=== PATIENT | male | born 2005 | race Caucasian/White ===

== ENCOUNTER 2025-09-29 12:36 | Emergency (ER) | payer BC, SELFPAY ==
--- NOTE | ~2025-09-29 | US_ITS ---
US abdomen limited Indication: Elevated bilirubin Comparison: None Technique: Elder-scale and color Doppler images were obtained. Findings: LIVER: Unremarkable, liver contours intact, no lesions. Normal echogenicity. . The liver measures 15.3 cm. GALLBLADDER/BILIARY: Unremarkable.No cholelithiais, wall thickening or pericholecystic fluid. No biliary dilatation. CBD 2.6 mm. [place] sign negative. PANCREAS: Pancreas limited by bowel gas. Right Kidney: Visualized right kidney limited but grossly unremarkable. Impression: The visualized liver appears grossly unremarkable Reviewed, dictated and finalized at location [facility] Impression: The visualized liver appears grossly unremarkable
[2025-09-29 12:52] VITALS: BP 122/75; PULSE 87; RESP 16; TEMP 37.1; O2SAT 100
--- NOTE | 2025-09-29 14:15 | ED.NAVMDI ---
HPI - Nausea/Vomiting/Diarrhea General Chief complaint: Nausea/Vomiting/Diarrhea <Monserrat Perez PA-C - Last Filed: 10/08/25 14:44> Stated complaint: fever, vomiting <Monserrat Perez PA-C - Last Filed: 10/08/25 14:44> Time Seen by Provider: 09/29/25 14:15 <Monserrat Perez PA-C - Last Filed: 10/08/25 14:44> Focused HPI: This is a 20 year old male that presents to the ER for fever. Reports associated nausea, vomiting, diarrhea. Reports he feels like his eyes are yellow. No current abdominal pain. Denies cough, congestion, sore throat. GENERAL: Well-appearing, well-nourished, and in no acute distress. HEAD: Normocephalic, atraumatic. CHEST: Clear to auscultation. ?No respiratory distress. HEART: Regular rate and rhythm.? NEURO: ?Alert and oriented x3. Patient screened in triage and initial orders placed.? ?Additional care and disposition to be based upon?diagnostic testing and treatment. <Monserrat Perez PA-C - Last Filed: 10/08/25 14:44> History of Present Illness HPI Narrative: Agree with the above HPI <Eben Fraser MD - Last Filed: 09/29/25 22:24> Related Data Allergies/Adverse reactions: Allergies Allergy/AdvReac Type Severity Reaction Status Date / Time No Known Allergies Allergy Verified 09/29/25 12:56 <Monserrat Perez PA-C - Last Filed: 10/08/25 14:44> Review of Systems Review of Systems: All systems reviewed & are unremarkable except as noted in HPI and below <Eben Fraser MD - Last Filed: 09/29/25 22:24> Exam Narrative: APPEARANCE: Well appearing, no pain, no distress, well-nourished. HEAD: normocephalic, atraumatic. EYES: Mild scleral jaundice NOSE: Normal no drainage EARS:TMS clear with good light reflex. THROAT: Pharynx clear, no exudate. NECK: Supple. No adenopathy, no masses. RESPIRATORY: Airway patent, respirations nonlabored. Clear to auscultation bilaterally, no rales, rhonchi, wheezing. CARDIOVASCULAR: Regular rate and rhythm without murmurs rubs or gallops. ABDOMINAL: Soft, nontender, nondistended, normal bowel sounds MUSCULOSKELETAL: Moves all extremities. Strength/ROM intact, No edema, No calf tenderness. NEURO: Alert. Cranial nerves II through XII intact. Good gait. Good coordination SKIN: Warm, dry. Normal Color <Eben Fraser MD - Last Filed: 09/29/25 22:24> Course Vital Signs Vital signs: Vital Signs Temperature 98.8 F 09/29/25 12:52 Pulse Rate 87 09/29/25 12:52 Respiratory Rate 16 09/29/25 12:52 Blood Pressure 122/75 09/29/25 12:52 Pulse Oximetry 100 09/29/25 12:52 Oxygen Delivery Room Air 09/29/25 12:52 Temperature 98.8 F 09/29/25 12:52 Pulse Rate 58 L 09/29/25 18:15 Respiratory Rate 16 09/29/25 18:15 Blood Pressure 118/70 09/29/25 18:15 Pulse Oximetry 100 09/29/25 18:15 Oxygen Delivery Room Air 09/29/25 12:52 <Monserrat Perez PA-C - Last Filed: 10/08/25 14:44> Vital Signs Temperature 98.8 F 09/29/25 12:52 Pulse Rate 87 09/29/25 12:52 Respiratory Rate 16 09/29/25 12:52 Blood Pressure 122/75 09/29/25 12:52 Pulse Oximetry 100 09/29/25 12:52 Oxygen Delivery Room Air 09/29/25 12:52 Temperature 98.8 F 09/29/25 12:52 Pulse Rate 58 L 09/29/25 18:15 Respiratory Rate 16 09/29/25 18:15 Blood Pressure 118/70 09/29/25 18:15 Pulse Oximetry 100 09/29/25 18:15 Oxygen Delivery Room Air 09/29/25 12:52 <Eben Fraser MD - Last Filed: 09/29/25 22:24> MDM - Nausea/Vomiting/Diarrhea MDM Narrative Medical decision making narrative: 20-year-old male presents emergency department for evaluation for scleral jaundice. Patient states this is improving since yesterday. Patient is also reporting that his nausea and vomiting has improved as well. Patient is no distress at time of evaluation. Patient is afebrile no leukocytosis hemoglobin of 14. Patient has mild elevation of T bili 2.1 but normal AST ALT alk-phos and lipase. UA was negative for infection. Patient was negative for hep C hep B and hep a along with influenza a B RSV and for COVID. No acute abnormalities on the ultrasound. Suspect viral etiology for the nausea vomiting and elevated T bili. Patient family were updated the results of the workup encouraged close follow-up with primary care physician for repeat lab testing. Patient was provided Zofran for nausea control. All questions concerns were addressed. Patient family are comfortable with the plan for discharge and close follow-up. <Eben Fraser MD - Last Filed: 09/29/25 22:24> Differential Diagnosis Differential diagnosis: Likely traveler's diarrhea, food poisoning, gastroenteritis, drug-induced nausea and vomiting and dehydration <Eben Fraser MD - Last Filed: 09/29/25 22:24> Lab Data Attestation: I reviewed the patient's lab results. <Eben Fraser MD - Last Filed: 09/29/25 22:24> Result diagrams: 09/29/25 15:06 09/29/25 15:06 <Monserrat Perez PA-C - Last Filed: 10/08/25 14:44> Labs: Lab Results 09/29/25 09/29/25 Range/Units 15:06 16:15 WBC 3.5 L (4.5-10.0) K/mm3 RBC 4.87 (4.6-6.20) M/mm3 Hgb 14.0 (14.0-18.0) g/dL Hct 41.1 L (42.0-52.0) % MCV 84.4 (80-100) fl MCH 28.7 (26-34) pg MCHC 34.1 (32-36) g/dl RDW 12.3 (11.5-14.5) % Plt Count 205 (150-375) k/mm3 MPV 10.5 H (7.4-10.4) fl Immature Gran % (Auto) 0.3 (0-0.5) % Neut % (Auto) 54.5 (45.5-73.1) % Lymph % (Auto) 28.1 (18.3-44.2) % [place] % (Auto) 15.1 H (2.6-8.5) % Eos % (Auto) 1.4 (0-4.4) % Baso % (Auto) 0.6 (0.2-1.2) % Lymph # (Auto) 0.99 (0.9-3.2) K/mm3 [place] # (Auto) 0.5 (0.1-0.6) K/mm3 Eos # (Auto) 0.1 (0-0.3) K/mm3 Baso # (Auto) 0.0 (0.0-0.1) K/mm3 Abs Immat Gran (auto) 0.01 (0.00-0.031) K/mm3 Absolute Neuts (auto) 1.9 (1.3-6.7) K/mm3 Absolute Nucleated RBC 0.000 (0.0-0.012) K/mm3 Nucleated RBC % 0.0 (0.0-0.2) % PT 13.9 (11.1-14.7) Seconds INR 1.1 APTT 26.9 (22.3-36.8) Seconds Sodium 136 L (137-145) mmol/L Potassium 4.5 (3.4-5.0) mmol/L Chloride 100 (98-107) mmol/L Carbon Dioxide 30 (22-30) mmol/L Anion Gap 6 (4-12) mmol/L BUN 17 (9-20) mg/dL Creatinine 0.99 (0.7-1.3) mg/dL Estim Creat Clear Calc 97 ml/min Estimated GFR > 60 (59 - ) Glucose 108 (65-110) mg/dL Calcium 9.3 (8.4-10.2) mg/dL Total Bilirubin 2.1 H (0.2-1.3) mg/dL AST 29 (17-59) U/L ALT 18 (6-50) U/L Alkaline Phosphatase 55 (38-126) U/L Total Protein 8.6 H (6.3-8.2) g/dL Albumin 4.8 (3.5-5.1) g/dL Lipase 31 (23-300) U/L Urine Color Yellow (Yellow) Urine Appearance Clear (Clear) Urine pH 7.5 (5.0-9.0) Ur Specific [place] 1.022 (1.001-1.035) Urine Protein Negative (Negative) mg/dL Urine Glucose (UA) Negative (Negative) mg/dL Urine Ketones Negative (Negative) mg/dL Ur Blood (Man) Negative (Negative) Urine Nitrate Negative (Negative) Urine Bilirubin Negative (Negative) Urine Urobilinogen 1.0 (<2.0) mg/dL Leukocyte Esterase Rfl Negative (Negative) KELSI/UL Hepatitis A IgM Ab Negative (Negative) Hep Bs Antigen Negative (Negative) Hep B Core IgM Ab Negative (Negative) Hepatitis C Ab Screen Negative (Negative) Influenza A (RT-PCR) Negative (Negative) Influenza B (RT-PCR) Negative (Negative) RSV (RT-PCR) Negative (Negative) SARS-CoV-2 RNA (RT-PCR) Negative (Negative) <Monserrat Perez PA-C - Last Filed: 10/08/25 14:44> Lab Results 09/29/25 09/29/25 Range/Units 15:06 16:15 WBC 3.5 L (4.5-10.0) K/mm3 RBC 4.87 (4.6-6.20) M/mm3 Hgb 14.0 (14.0-18.0) g/dL Hct 41.1 L (42.0-52.0) % MCV 84.4 (80-100) fl MCH 28.7 (26-34) pg MCHC 34.1 (32-36) g/dl RDW 12.3 (11.5-14.5) % Plt Count 205 (150-375) k/mm3 MPV 10.5 H (7.4-10.4) fl Immature Gran % (Auto) 0.3 (0-0.5) % Neut % (Auto) 54.5 (45.5-73.1) % Lymph % (Auto) 28.1 (18.3-44.2) % [place] % (Auto) 15.1 H (2.6-8.5) % Eos % (Auto) 1.4 (0-4.4) % Baso % (Auto) 0.6 (0.2-1.2) % Lymph # (Auto) 0.99 (0.9-3.2) K/mm3 [place] # (Auto) 0.5 (0.1-0.6) K/mm3 Eos # (Auto) 0.1 (0-0.3) K/mm3 Baso # (Auto) 0.0 (0.0-0.1) K/mm3 Abs Immat Gran (auto) 0.01 (0.00-0.031) K/mm3 Absolute Neuts (auto) 1.9 (1.3-6.7) K/mm3 Absolute Nucleated RBC 0.000 (0.0-0.012) K/mm3 Nucleated RBC % 0.0 (0.0-0.2) % PT 13.9 (11.1-14.7) Seconds INR 1.1 APTT 26.9 (22.3-36.8) Seconds Sodium 136 L (137-145) mmol/L Potassium 4.5 (3.4-5.0) mmol/L Chloride 100 (98-107) mmol/L Carbon Dioxide 30 (22-30) mmol/L Anion Gap 6 (4-12) mmol/L BUN 17 (9-20) mg/dL Creatinine 0.99 (0.7-1.3) mg/dL Estim Creat Clear Calc 97 ml/min Estimated GFR > 60 (59 - ) Glucose 108 (65-110) mg/dL Calcium 9.3 (8.4-10.2) mg/dL Total Bilirubin 2.1 H (0.2-1.3) mg/dL AST 29 (17-59) U/L ALT 18 (6-50) U/L Alkaline Phosphatase 55 (38-126) U/L Total Protein 8.6 H (6.3-8.2) g/dL Albumin 4.8 (3.5-5.1) g/dL Lipase 31 (23-300) U/L Urine Color Yellow (Yellow) Urine Appearance Clear (Clear) Urine pH 7.5 (5.0-9.0) Ur Specific [place] 1.022 (1.001-1.035) Urine Protein Negative (Negative) mg/dL Urine Glucose (UA) Negative (Negative) mg/dL Urine Ketones Negative (Negative) mg/dL Ur Blood (Man) Negative (Negative) Urine Nitrate Negative (Negative) Urine Bilirubin Negative (Negative) Urine Urobilinogen 1.0 (<2.0) mg/dL Leukocyte Esterase Rfl Negative (Negative) KELSI/UL Hepatitis A IgM Ab Negative (Negative) Hep Bs Antigen Negative (Negative) Hep B Core IgM Ab Negative (Negative) Hepatitis C Ab Screen Negative (Negative) Influenza A (RT-PCR) Negative (Negative) Influenza B (RT-PCR) Negative (Negative) RSV (RT-PCR) Negative (Negative) SARS-CoV-2 RNA (RT-PCR) Negative (Negative) <Eben Fraser MD - Last Filed: 09/29/25 22:24> Imaging Data Radiologist's impression: Impressions Abdomen Ultrasound 09/29/25 17:02 Impression: The visualized liver appears grossly unremarkable <Eben Fraser MD - Last Filed: 09/29/25 22:24> Discharge Plan Discharge Clinical Impression: Jaundice Nausea & vomiting Qualifiers: Vomiting type: unspecified Qualified Code(s): R11.2 - Nausea with vomiting, unspecified <Monserrat Perez PA-C - Last Filed: 10/08/25 14:44> Patient Disposition: Home <Monserrat Perez PA-C - Last Filed: 10/08/25 14:44> Condition: Stable <Monserrat Perez PA-C - Last Filed: 10/08/25 14:44> Instructions: Antibiotic Form, Clear Liquid Diet (ED), Acute Nausea and Vomiting (ED) <Monserrat Perez PA-C - Last Filed: 10/08/25 14:44> Additional Instructions: zofran and as needed for nausea control. Clear liquid diet for the next 1-3 days. Advance to a bland diet as tolerated. Have close follow-up with your primary care physician for additional outpatient testing <Monserrat Perez PA-C - Last Filed: 10/08/25 14:44> Patient Language: Beninese <HAL Velasco Last Filed: 10/08/25 14:44> Prescriptions: New ondansetron 4 mg tablet,disintegrating 4 mg PO Q8H PRN (Reason: nausea and vomiting) Qty: 14 0RF <Monserrat Perez PA-C - Last Filed: 10/08/25 14:44> Follow-up/Referrals: PHYSICIAN,GRADUATE RECRUITER [Primary Care Provider, Internal Medicine] <Monserrat Perez PA-C - Last Filed: 10/08/25 14:44> Stand Alone Forms: Work/School Release IP <Monserrat Perez PA-C - Last Filed: 10/08/25 14:44>
[2025-09-29 15:16] LABS: Hematocrit 41.1 % (42.0-52.0); Hemoglobin 14.0 g/dL (14.0-18.0); Immature Granulocyte Percent A 0.3 % (0-0.5); Lymphocytes Absolute Auto 0.99 K/mm3 (0.9-3.2); Mean Corpuscular HGB Conc 34.1 g/dl (32-36); Mean Corpuscular Hemoglobin 28.7 pg (26-34); Mean Corpuscular Volume 84.4 fl (80-100); Nucleated Red Blood Cells Absolute Auto 0.000 K/mm3 (0.0-0.012); Nucleated Red Blood Cells Perc 0.0 % (0.0-0.2); Platelet Count Result 205 k/mm3 (150-375); Red Blood Count 4.87 M/mm3 (4.6-6.20); White Blood Count 3.5 K/mm3 (4.5-10.0)
[2025-09-29 15:18] LABS: Add Urine Microscopic? NO; Appearance Urine Clear (Clear); Glucose Urine UA Negative (Negative); Leukocyte Esterase Ur Negative LEU/UL (Negative); Nitrate Urine Negative (Negative); Specific Grav Ur 1.022 (1.001-1.035)
[2025-09-29 15:26] LABS: Alanine Aminotransferase 18 U/L (6-50); Albumin Level 4.8 g/dL (3.5-5.1); Alkaline Phosphatase 55 U/L (38-126); Anion Gap 6 mmol/L (4-12); Aspartate Amino Transferase 29 U/L (17-59); Bilirubin,Total 2.1 mg/dL (0.2-1.3); Blood Urea Nitrogen 17 mg/dL (9-20); Calcium 9.3 mg/dL (8.4-10.2); Carbon Dioxide 30 mmol/L (22-30); Chloride 100 mmol/L (98-107); Estimated CRCL calculation 97 ml/min; Estimated Glomerular Filt Rate > 60; Glucose 108 mg/dL (65-110); Lipase 31 U/L (23-300); Potassium 4.5 mmol/L (3.4-5.0); Sodium 136 mmol/L (137-145); Total Protein 8.6 g/dL (6.3-8.2)
[2025-09-29 15:28] LABS: INR 1.1; Prothrombin Time 13.9 Seconds (11.1-14.7)
[2025-09-29 15:29] LABS: Partial Thromboplastin Time 26.9 Seconds (22.3-36.8)
--- OUTSIDE RECORDS SUMMARY | 2025-09-29 15:44 | XMS_ITS | Encounter Summary ---
Author Organization [facility] Address [address] [place] [address] Care Team Providers Care Bonbon Dipper Name Role Phone Christy Bowers Primary Care Provider [phone] Encounter Details Date Type Department Care Team (Late st Contact Info) Description 06/25/2019 Lab Requisition [facility] [address] [facility] [place] [id number] Taylor Schaeffer DO [address] [facility] [address] [place] [address] Social History Tobacco Use Types Packs/Day Years Used Date Smoking Tobacco: Never Smokeless Tobacco: Never Alcohol Use Standard Drinks/Week Comments No 0 (1 standard drink = 0.6 oz pur e alcohol) Sex and Gender Information Value Date Recorded Sex Assigned at Not on file 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 Gender Identity Not on file Sexual Orientation Not on file documented as of this encounter Plan of Treatment Not on file documented as of this encounter Procedures Procedure Name Priority Date/Time Associated Diagnosis Comments DERMATOPATHOLOGY Routine 06/24/2019 12:0 0 AM CDT documented in this encounter Results * DERMATOPATHOLOGY (06/24/2019 12:00 AM CDT) Case Report Dermatopathology Report Case: [id number] Authorizing Provider: Taylor Schaeffer DO Collected: 06/24/2019 12:00 AM Ordering Location: [facility] Received: 06/25/2019 07:00 AM Pathologist: Hailey Zavala MD Specimens: A) - Skin, left cheek B) - Skin, left abdomen C) - Skin, right shoulder 12:54 PM CDT DERMATOPATHOLOGY LABORATORY Final Diagnosis Specimen A. SKIN, left cheek: COMPOUND MELANOCYTIC NEVUS (D22.39) Specimen B. SKIN, left abdomen: COMPOUND MELANOCYTIC NEVUS, IRRITATED (D22.5) Specimen C. SKIN, right shoulder: COMPOUND MELANOCYTIC NEVUS, IRRITATED (D22.61) 12:54 PM CDT DERMATOPATHOLOGY LABORATORY at 1254 CDT Clinical History A-C: Nevus R/O atypia. Fam hx MM, pt concerned that changing and irritated. 12:54 PM CDT DERMATOPATHOLOGY LABORATORY Gross Description Specimen A: Received is one formalin filled container labeled with the patient's name and designated left cheek. The specimen consists of a shave measuring [id number]. Jar 0. Specimen B: Received is one formalin filled container labeled with the patient's name and designated left abdomen. The specimen consists of a shave (2 pieces) measuring [id number] & [id number]. Jar 0. Specimen C: Received is one formalin filled container labeled with the patient's name and designated right shoulder. The specimen consists of a shave measuring [id number]. Jar 0. 12:54 PM CDT DERMATOPATHOLOGY LABORATORY Microscopic Description Specimen A. SKIN, left cheek: There are nests of melanocytes at the dermal-epidermal junction and within the dermis. Specimen B. SKIN, left abdomen: There is melanin pigment in the stratum corneum. There are nests of melanocytes at the dermal-epidermal junction and within the dermis. Specimen C. SKIN, right shoulder: There is melanin pigment in the stratum corneum. There are nests of melanocytes at the dermal-epidermal junction and within the dermis. 12:54 PM CDT DERMATOPATHOLOGY LABORATORY Disclaimer An external and internal positive and negative controls are appropriate for the histochemical, immunohistochemical and immunofluorescence stain(s) in this case (if any), except where stated explicitly. The performance characteristics of the stain(s) cited in this report were developed and its performance characteristic determined by the Dermatopathology Laboratory at [facility], directed by Dr. Nidhi Ballesteros. These tests need not be, and therefore are not, approved by the [place] Food and Drug Administration. The tests are used for clinical purposes. Billing Codes Specimen Charges Stain Charges 94973 [id number] 1 1 1 9 12:54 PM CDT DERMATOPATHOLOGY LABORATORY Embedded Images 9 12:54 PM CDT DERMATOPATHOLOGY LABORATORY Pathology/Cytology TISSUE SPECIMEN FROM SKIN / Unknown 06/24/2019 06/25/2019 7:00 AM CDT Miscellaneous samples (specimen) TISSUE SPECIMEN FROM SKIN / Unknown 06/24/2019 06/25/2019 7:00 AM CDT Miscellaneous samples (specimen) TISSUE SPECIMEN FROM SKIN / Unknown 06/24/2019 06/25/2019 7:00 AM CDT us Taylor Schaeffer DO LAB - PATHOLOGY/CYTOLOGY ORDERABLES Final Result DERMATOPATHOLOGY LABORATORY [facility] - Department of Dermatology [address] [place] [address] [address] [phone] documented in this encounter Visit Diagnoses Not on filedocumented in this encounter Care Teams Bonbon Dipper Relationship Specialty Start Date End Date Christy Bowers PA PCP - General Physician Laser Beam Cutter 06/16/18 documented as of this encounter
--- OUTSIDE RECORDS SUMMARY | 2025-09-29 15:44 | XMS_ITS | Data Portability ---
Author Organization [place] - [facility], [facility] Address [address] [place] [address] Assessment No assessment recorded. Plan of Treatment Reminders Order Date Submit Date Provider Last Modified By Organization Details Last Modified Time Details Appointments None record ed. Lab None record ed. Referral None record ed. Procedures None record ed. Surgeries None record ed. Imaging None record ed. Medication Orders None record ed. Patient TargetsNo targets recorded. Patient InstructionsNo instructions recorded. Reason for Referral None Reported. Results Created Date Observation Date Name Description Value Unit Range Abnormal Flag Note LastModifiedBy Organization Detail LastModifiedTime 10/08/20 19 10/08/2019 rapid flu (A+B) influenza A negati ve negati ve normal Not Available In-House Results For Internal Use Only, Do Not Delete/merge, [id number] 10/08/2019 11:29:10 10/08/20 19 10/08/2019 rapid flu (A+B) influenza B negati ve negati ve normal Not Available In-House Results For Internal Use Only, Do Not Delete/merge, [id number] 10/08/2019 11:29:10 10/08/20 19 10/08/2019 rapid flu (A+B) control accept able accept able normal Not Available In-House Results For Internal Use Only, Do Not Delete/merge, [id number] 10/08/2019 11:29:10 10/08/20 19 10/08/2019 rapid strep group A, throa t strep A negati ve negati ve normal Not Available In-House Results For Internal Use Only, Do Not Delete/merge, [id number] 10/08/2019 11:24:29 10/16/20 22 10/16/2022 rapid flu (A+B) influenza A negati ve negati ve Not Available In-House Results For Internal Use Only, Do Not Delete/merge, [id number] 10/16/2022 11:15:41 10/16/20 22 10/16/2022 rapid flu (A+B) influenza B negati ve negati ve Not Available In-House Results For Internal Use Only, Do Not Delete/merge, [id number] 10/16/2022 11:15:41 10/16/20 22 10/16/2022 rapid flu (A+B) control accept able Not Available In-House Results For Internal Use Only, Do Not Delete/merge, [id number] 10/16/2022 11:15:41 10/16/20 22 10/16/2022 rapid strep group A, throa t strep A negati ve negati ve Not Available In-House Results For Internal Use Only, Do Not Delete/merge, [id number] 10/16/2022 11:01:24 10/16/20 22 10/16/2022 SARS CoV 2 RNA (COVI D-19) , QL, 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 Problems Name Problem SNOMED Code Status Onset Date Resolution Date Notes Provider Name and Address Organization Details Recorded Time Acute bronchitis 93308279 Active Not Available [facility] 3 15:21:24 Acute sinusitis 23313196 Active Not Available [facility] 3 15:21:24 Pain of joint of hand 117065362 Active Not Available [facility] 3 15:21:24 Abdominal pain 38214065 Active Not Available [facility] 3 15:21:24 Pneumonia 451885676 Active Not Available [facility] 3 15:21:24 Headache 26702189 Active Not Available [facility] 3 15:21:24 Polyuria 83965176 Active Not Available [facility] 3 15:21:24 Acute pharyngitis 751321137 Active Not Available [facility] 3 15:21:24 Fever 365305197 Active Not Available [facility] 3 15:21:24 Streptococcal sore throat 22335054 Active Not Available [facility] 3 15:21:25 Gastritis 2017282 Active Not Available [facility] 3 15:21:25 Cough 66315983 Active Not Available [facility] 3 15:21:25 Otitis media 80743081 Active Not Available [facility] 3 15:21:25 Rhinitis 72771855 Active Not Available [facility] 3 15:21:25 Conjunctiviti s 5186359 Active Not Available [facility] 3 15:21:25 Acute maxillary sinusitis 16568066 Active 2021 Not Available [facility] 3 22:08:05 Sore throat 614713167 Active 2021 Not Available [facility] 3 22:08:05 Problem Notes None recorded. Procedures Surgical History Date Name Laterality Status Provider Name and Address Organization Details Recorded Time 04/17/20 05 circumcision completed Not Available [facility] 023 22:09:12 tonsilectomy/mihaela noids completed Not Available [facility] 11/24/2022 22:09:12 Imaging Results None recorded. Procedure Notes None recorded. Medical Equipment None Reported. Allergies Allergen ID Allergen Name Allergen Category Reaction Reaction Severity Criticality Documentation Date Start Date Code Code System Note Provider Name and Address Organization Details Recorded Time 653409 lactose food,medi cation Not available Not available Not available 11/24/2022 6211 RxNorm Not Available [facility] 3 15:23:48 Medications Name Sig Start Date Stop Date Status Note LastModified by Organization Details LastModified Time albuterol sulfate 2.5 mg/3 mL (0.083 %) solution for nebulizatio n Inhale 1.5 mL by nebulizat ion route. 02/18 completed Not Available Not Available Not Available amoxicillin 600 mg-potassiu m clavulanate 42.9 mg/5 mL oral suspension Take 10 mL twice a day by oral route after meals for 10 days. active Not Available Not Available No t Available albuterol sulfate 1.25 mg/3 mL solution for nebulizatio n Inhale 3 mL 4 times a day by inhalatio n route as needed. active Not Available Not Available No t Available ondansetron HCl 4 mg tablet TAKE 1 TABLET BY MOUTH EVERY DAY NEEDED active Not Available Not Available No t Available amoxicillin 875 mg tablet Take 1 tablet twice a day by oral route for 10 days. active Take with food Not Available Not Available Not Available tobramycin 0.3 % eye drops apply 1-2 drops to the affected eye 2-3 x daily x 7 days active Not Available Not Available No t Available ranitidine 150 mg tablet Take 1 tablet twice a day by oral route for 30 days. active Not Available Not Available No t Available omeprazole 20 mg capsule,del ayed release Take 1 capsule every day by oral route at dinner. 06/14 completed Not Available Not Available Not Available amoxicillin 400 mg/5 mL oral suspension Take 10 mL twice a day by oral route with meals for 10 days. active Not Available Not Available No t Available azithromyci n 200 mg/5 mL oral suspension active Not Available Not Available N ot Available methylpredn isolone 4 mg tablets in a dose pack Use as directed on package instructi ons active Not Available Not Available No t Available ondansetron 4 mg disintegrat ing tablet Take 1 tablet 3 times a day by oral route as needed for 5 days. active Not Available Not Available No t Available cefdinir 300 mg capsule Take 1 capsule twice a day by oral route for 10 days. active take with food Not Available Not Available Not Available fluticasone propionate 50 mcg/actuati on nasal spray,suspe nsion active Not Available Not Available Not Available amoxicillin 875 mg-potassiu m clavulanate 125 mg tablet Take 1 tablet every 12 hours by oral route with meals for 10 days. active Not Available Not Available No t Available azithromyci n 500 mg tablet Take 1 tablet every day by oral route for 5 days. active Not Available Not Available No t Available cefdinir 250 mg/5 mL oral suspension active Not Available Not Available N ot Available multivitami n takes daily 02/28 completed Not Available Not Available Not Available Tamiflu 30 mg capsule active Not Available Not Available N ot Available Vitals Date Recorded Oxygen saturation Oxygen saturation in Arterial blood by Pulse oximetry Pain severity - 0-10 verbal numeric rating [Score] - Reported Heart rate Body temperature Body weight Systolic And Diastolic Provider Name and Address Organization Details Last Updated DateTime 0 97 % 97 % 0 78 /min 98.1 [degF] 36017.4 5 g 110/68 mm[Hg] Not Available [facility] 3 22:06:57 Date Recorded Body mass index (BMI) Body height Oxygen saturation Oxygen saturation in Arterial blood by Pulse oximetry Pain severity - 0-10 verbal numeric rating [Score] - Reported Heart rate Respiratory rate Body temperature Body weight Systolic And Diastolic Provider Name and Address Organization Details Last Updated DateTime 1 18.7 kg/m2 182.88 cm 98 % 98 % 0 63 /min 16 /min 98 [degF] 27581.7 5 g 106/64 mm[Hg] Not Available [facility] 3 22:06:57 Date Recorded Body mass index (BMI) Body height Oxygen saturation Oxygen saturation in Arterial blood by Pulse oximetry Pain severity - 0-10 verbal numeric rating [Score] - Reported Heart rate Body temperature Body weight Systolic And Diastolic Provider Name and Address Organization Details Last Updated DateTime 2 20.5 kg/m2 185.42 cm 100 % 100 % 0 88 /min 98.2 [degF] 95746.2 2 g 110/76 mm[Hg] Not Available [facility] 3 22:06:57 Date Recorded Body mass index (BMI) Body height Oxygen saturation Oxygen saturation in Arterial blood by Pulse oximetry Heart rate Respiratory rate Body temperature Body weight Systolic And Diastolic Provider Name and Address Organization Details Last Updated DateTime 9 18.4 kg/m2 175.26 cm 95 % 95 % 92 /min 16 /min 98.4 [degF] 23022.3 3 g 108/64 mm[Hg] Not Available [facility] 3 22:06:56 Date Recorded Body mass index (BMI) Body height Oxygen saturation Oxygen saturation in Arterial blood by Pulse oximetry Pain severity - 0-10 verbal numeric rating [Score] - Reported Heart rate Respiratory rate Body temperature Body weight Systolic And Diastolic Provider Name and Address Organization Details Last Updated DateTime 2 21.2 kg/m2 185.42 cm 100 % 100 % 6 86 /min 18 /min 97.8 [degF] 90116.3 7 g 110/62 mm[Hg] Not Available [facility] 3 22:06:57 Social History Question Answer Notes LastModified by Organizat ion Details LastModified Time Tobacco Smoking Status Never Smoker Not Available [facility] 11/24/2022 22:05:18 What Is Your Level Of Caffeine Consumption? Occasional [id number] Information not available 11/24/2022 What Type Of Chassis Engineer Do You Use? None [id number] Information not available 11/24/2022 In The 14 Days Before Symptom Onset, Have You Had Close Contact With A Laboratory-confirm ed COVID-19 While That Case Was Ill? No [id number] Information not available 11/24/2022 In The 14 Days Before Symptom Onset, Have You Had Close Contact With A Person Who Is Under Investigation For COVID-19 While That Person Was Ill? No [id number] Information not available 11/24/2022 What Type Of Diet Are You Following? REGULAR [id number] Information not available 11/24/2022 Are There Any Guns Present In Your Home? No [id number] Information not available 11/24/2022 What Is Your Home Situation? Both Parents [id number] Information not available 11/24/2022 Do You Use Insect Repellent Routinely? Yes [id number] Information not available 11/24/2022 Do You Have A Plan To Hurt Yourself Or Others? No [id number] Information not available 11/24/2022 Do You Feel Hopeless Or Helpless? No [id number].[id number] Information not available 11/24/2022 Are You Having Any Thoughts Of Suicide Now? No [id number].[id number] Information not available 11/24/2022 What Was The Date Of Your Most Recent Tobacco Screening? 10/16/2022 [id number] Information not available 11/24/2022 What Is Your Parents' Marital Status? [id number].[id number] [id number] Information not available 11/24/2022 Do You Use Your Seat Belt Or Car Seat Routinely? Yes [id number] Information not available 11/24/2022 Do You Have Any Siblings? 1 Sister MIGRATION.[id number] 1311 Information not available 11/24/2022 Do You Have Smoke And Carbon Monoxide Detectors In Your Home? Yes [id number] Information not available 11/24/2022 Are You Passively Exposed To Smoke? No [id number].[id number] 2504 Information not available 11/24/2022 How Much Tobacco Do You Smoke? No [id number].[id number] Information not available 11/24/2022 Do You Use Sunscreen Routinely? Yes [id number].[id number] 1500 Information not available 11/24/2022 Has Tobacco Cessation Counseling Been Provided? No MIGRATION.[id number] 0740 Information not available 11/24/2022 Sex: Male Functional Status Question Answer Note LastModified by Organizat ion Details LastModified Time Do you use any illicit or recreational drugs? No [id number] Information not available 11/24/2022 Mental Status None recorded. Family History Relationship Description Onset Age of this Age Resolved Age Notes LastModified by Organization Details LastModified Time Unspecified Relation Hypertensive disorder [id number] Not available 11/24/2022 22:04:44 Unspecified Relation Lazy eye [id number] Not available 11/24/2022 22:04:44 Mother Malignant neoplasm of breast [id number] Not available 11/24/2022 22:04:44 Notes:CAD, Melanoma Medical History Condition Response BOWEL PROBLEMS Y Immunizations Vaccine Type Date Status Note Provider Nam e and Address Organization Details Recorded Time MMR 0 completed Not Available [facility] 11/24/2022 15:23:26 IPV 0 completed Not Available [facility] 11/24/2022 15:23:26 DTaP 0 completed Not Available [facility] 11/24/2022 15:23:26 varicella 0 completed Not Available [facility] 11/24/2022 15:23:26 Hep A, ped/adol, 2 dose 0 completed Not Available [facility] 11/24/2022 15:23:26 Hep A, ped/adol, 2 dose 7 completed Not Available [facility] 11/24/2022 15:23:26 pneumococcal conjugate PCV 7 6 completed Not Available [facility] 11/24/2022 15:23:27 DTaP 6 completed Not Available [facility] 11/24/2022 15:23:27 varicella 6 completed Not Available [facility] 11/24/2022 15:23:27 MMR 6 completed Not Available [facility] 11/24/2022 15:23:27 Hep B, adolescent or pediatric 6 completed Not Available [facility] 11/24/2022 15:23:27 IPV 6 completed Not Available [facility] 11/24/2022 15:23:27 DTaP 6 completed Not Available [facility] 11/24/2022 15:23:27 pneumococcal conjugate PCV 7 6 completed Not Available [facility] 11/24/2022 15:23:27 pneumococcal conjugate PCV 7 5 completed Not Available [facility] 11/24/2022 15:23:27 DTaP 5 completed Not Available [facility] 11/24/2022 15:23:27 IPV 5 completed Not Available [facility] 11/24/2022 15:23:27 Hep B, adolescent or pediatric 5 completed Not Available [facility] 11/24/2022 15:23:28 DTaP 5 completed Not Available [facility] 11/24/2022 15:23:28 Hep B, adolescent or pediatric 5 completed Not Available [facility] 11/24/2022 15:23:28 pneumococcal conjugate PCV 7 5 completed Not Available [facility] 11/24/2022 15:23:28 IPV 5 completed Not Available [facility] 11/24/2022 15:23:28 Hep B, adolescent or pediatric 5 completed Not Available [facility] 11/24/2022 15:23:28 Tdap 6 completed Not Available [facility] 11/24/2022 15:23:28 Meningococcal MCV4O 6 completed Not Available [facility] 11/24/2022 15:23:28 Meningococcal MCV4O 6 completed Not Available [facility] 11/24/2022 22:09:01 Tdap 6 completed Not Available [facility] 11/24/2022 22:09:02 varicella 0 completed Not Available [facility] 11/24/2022 22:09:02 IPV 0 completed [facility] 11/24/2022 22:09:02 MMR 0 completed Not Available [facility] 11/24/2022 22:09:02 Hep A, ped/adol, 2 dose 0 completed Not Available [facility] 11/24/2022 22:09:02 DTaP 0 completed Not Available [facility] 11/24/2022 22:09:02 Hep A, ped/adol, 2 dose 7 completed Not Available [facility] 11/24/2022 22:09:02 pneumococcal conjugate PCV 7 6 completed Not Available [facility] 11/24/2022 22:09:02 DTaP 6 completed Not Available [facility] 11/24/2022 22:09:02 varicella 6 completed Not Available [facility] 11/24/2022 22:09:02 MMR 6 completed Not Available [facility] 11/24/2022 22:09:02 Hep B, adolescent or pediatric 6 completed Not Available [facility] 11/24/2022 22:09:03 IPV 6 completed Not Available [facility] 11/24/2022 22:09:03 pneumococcal conjugate PCV 7 6 completed Not Available [facility] 11/24/2022 22:09:03 DTaP 6 completed Not Available [facility] 11/24/2022 22:09:03 IPV 5 completed Not Available [facility] 11/24/2022 22:09:03 pneumococcal conjugate PCV 7 5 completed Not Available [facility] 11/24/2022 22:09:03 Hep B, adolescent or pediatric 5 completed Not Available [facility] 11/24/2022 22:09:03 DTaP 5 completed Not Available [facility] 11/24/2022 22:09:03 IPV 5 completed Not Available [facility] 11/24/2022 22:09:03 pneumococcal conjugate PCV 7 5 completed Not Available [facility] 11/24/2022 22:09:03 Hep B, adolescent or pediatric 5 completed Not Available [facility] 11/24/2022 22:09:03 DTaP 5 completed Not Available [facility] 11/24/2022 22:09:03 Hep B, adolescent or pediatric 5 completed Not Available [facility] 11/24/2022 22:09:04 Meningococcal MCV4O 2 completed Not Available [facility] 11/24/2022 22:09:04 Past Encounters Encounter ID Performer Location Encounter Start Date Encounter Closed Date Diagnosis/Indication Diagnosis SNOMED-CT Code Diagnosis ICD10 Code Diagnosis IMO Codes Diagnosis Note [id number] HELEN Ortega DIR_[address] [address] 06/14/2019 00:00:00 06/14/2019 13:38:28 [id number] Urbano Barry NP [address] [address] 10/08/2019 00:00:00 10/08/2019 16:06:59 [id number] Urbano Barry NP [address] [address] 01/20/2020 00:00:00 01/23/2020 14:57:17 [id number] HELEN Alvarez DIR[address] [address] 02/28/2021 00:00:00 02/28/2021 14:05:44 [id number] [facility] [address] 07/02/2022 00:00:00 07/02/2022 13:20:03 [id number] HELEN Ortega DIR[address] [address] 10/16/2022 00:00:00 10/16/2022 11:49:45 Health Concerns Section Related Observation LastModified by Organization Detai ls LastModified Time None Recorded Concern Status LastModified by Organization Details LastModified Time None Recorded Advance Directives Directive None Recorded Payers Insurance Date Sequence Insurance Name Policy Number Policy Dent Covered Member ID Dent Member ID Guarantor Name 11/24/2022 1 [place] [id number] Jesse Gorman [id number] Jesse Gorman
--- OUTSIDE RECORDS SUMMARY | 2025-09-29 15:44 | XMS_ITS | Clinical Summary ---
Author Organization [facility] Address [address] [place] [id number] Care Team Providers Care Certified Medical Coder Name Role Phone Johan Mayen DO Primary Care Provider Social History Tobacco Use Types Packs/Day Years Used Date Smoking Tobacco: Never Assessed Sex and Gender Information Value Date Recorded Sex Assigned at Not on file Legal Sex Male 6:52 PM CDT Gender Identity Not on file Sexual Orientation Not on file Plan of Treatment Health Maintenance Due Date Last Done Comments Annual Physical 2008 HPV Vaccines (1 - Male 3-dos e series) 2020 Meningococcal B Vaccine (1 o f 2 - Standard) 2021 Hepatitis C 2023 DTaP, Tdap and Td Vaccines ( 1 - Tdap) 2024 Hepatitis B Vaccines (1 of 3 - 19+ 3-dose series) 2024 COVID-19 Vaccine (1 - 2024-2 6 season) 2025 Influenza Adult (#1) 2025 Hepatitis A Vaccines Aged Out No long er eligible based on patient's age to complete this topic Meningococcal Vaccine Aged Out No phu doug eligible based on patient's age to complete this topic Pneumococcal Vaccine: Pediat rics (0 to 5 Years) and At-Risk Patients (6 to 49 Years) Aged Out No longer eligible b ased on patient's age to complete this topic RSV Immunizations Under 20 Months Aged Out No longer eligible based on patient's age to complete this topic Care Teams Certified Medical Coder Relationship Specialty Start Date End Date Johan Mayen DO PCP - General 08/24/10
--- OUTSIDE RECORDS SUMMARY | 2025-09-29 15:44 | XMS_ITS | Clinical Summary ---
Author Organization [facility] Address [address] [place] [address] Care Team Providers Care Video Recorder Mechanic Name Role Phone Christy Bowers Primary Care Provider [phone] Source Comments [facility],non-owned Affiliates and Associated Physician Practices is amultiple site organization consisting of ambulatory clinics and hospital sitesin [place], [place], [place] and [place]. This disclosure is being madepursuant to the Care Everywhere program and may not contain all information available regarding this patient. Last updated 18.[facility] Allergies Active Allergy Reactions Criticality Noted Date Comments Lactose GI Discomfort 06/16/2018 Medications * Be aware that medications may not be up to date on this document. Alwaysverify current medications with the patient. multivitamin daily (THERAGRAN) tablet Take 1 Tab by mouth daily with food Active ibuprofen (MOTRIN) 200 MG tablet Take 400 mg by mouth every 6 hours as needed for Pain Active omeprazole (PRILOSEC) 20 MG capsule Take 1 capsule by mouth daily before dinner 30 capsule 2 06/16/2018 Active Active Problems Problem Noted Date Diagnosed Date Epigastric abdominal pain 06/16/2018 Non-intractable vomiting with nausea 06/15/2018 Fracture of proximal phalanx of toe of left foot 06/03/2017 Family History Medical History Relation Name Comments Other Maternal Grandmother GERD Allergies - Food Neg Hx Celiac Disease Neg Hx Crohn's Disease Neg Hx Ulcerative Colitis Neg Hx Relation Name Status Comments Maternal Grandmother Social History Tobacco Use Types Packs/Day Years Used Date Smoking Tobacco: Never Smokeless Tobacco: Never Alcohol Use Standard Drinks/Week Comments No 0 (1 standard drink = 0.6 oz pur e alcohol) Sex and Gender Information Value Date Recorded Sex Assigned at Not on file Legal Sex 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 Gender Identity Not on file Sexual Orientation Not on file Last Filed Vital Signs Vital Sign Reading Time Taken Comments Blood Pressure 100/64 06/16/2018 12:51 PM CDT Pulse 98 06/10/2018 12:58 PM CDT per pcp Temperature 37.2 C (98.9 F) 06/10/2018 12:58 PM CDT per pcp Respiratory Rate - - Oxygen Saturation 98% 06/10/2018 12:58 PM CDT per pcp Inhaled Oxygen Concentration - - Weight 48.1 kg (106 lb 0.7 oz) 06/16/2018 12:51 PM CDT Height 161.4 cm (5' 3.54) 06/16/2018 12:51 PM C DT Body Mass Index 18.46 06/16/2018 12:51 PM CDT Plan of Treatment Health Maintenance Due Date Last Done Comments HIV SCREENING 2020 HPV VACCINE (1 - Male 3-dose series) 2020 MENINGOCOCCAL (Group B) VACC INE SHARED DECISION-MAKING (1 of 2 - Standard) 2021 HEPATITIS C SCREENING 04/27/2023 DTAP/TDAP/TD VACCINES (1 - Tdap) 2024 HEPATITIS B VACCINE (1 of 3 - 19+ 3-dose series) 2024 DEPRESSION SCREENING 11/17/2024 COVID-19 VACCINE (1 - 2024-2 6 season) 2025 INFLUENZA VACCINE (#1) 2025 ZOSTER VACCINE (1 of 2) 2055 HIB VACCINE Aged Out No longer eligi ble based on patient's age to complete this topic MENINGOCOCCAL GROUPS A/C/Y/W VACCINE Aged Out No longer eligible b ased on patient's age to complete this topic PNEUMOCOCCAL VACCINE Aged Out No long er eligible based on patient's age to complete this topic Insurance [employer] [facility] CIG Care Teams Video Recorder Mechanic Relationship Specialty Start Date End Date Christy Bowers PA PCP - General Physician Rehabilitation Therapist 06/16/18
[2025-09-29 15:52] LABS: Influenza A QL RT-PCR Negative (Negative); Influenza B QL RT-PCR Negative (Negative); RSV RNA, RT-PCR Negative (Negative); SARS-CoV-2 RNA PCR Negative (Negative)
[2025-09-29] MEDS: LACTATED RINGERS 1,000 ML 999 ML IV CONT (16:14)
[2025-09-29 17:20] LABS: Hepatitis B Surface Antigen Negative (Negative)
[2025-09-29 17:26] LABS: HAV RESULT Negative (Negative); Hepatitis B Core IgM Result Negative (Negative)
[2025-09-29 18:15] VITALS: BP 118/70; PULSE 58; RESP 16; O2SAT 100
== END 2025-09-29 18:15 | disposition home or self-care (01) ==
PROVIDERS: Physician Assistant; Emergency Provider Emergency Medicine
DX: R11.2 Nausea with vomiting, unspecified (principal); R17 Unspecified jaundice; Z20.822 Contact with and (suspected) exposure to COVID-19
CPT/HCPCS: 36415; 76705; 80053; 80074; 81003; 83690; 85025; 85610; 85730; 87637; 96360; 99284; J7120